=== PATIENT | male | born 1980 | race Caucasian/White ===

== ENCOUNTER 2016-05-30 13:54 | Emergency (ER) | payer OTHER | END 2016-05-30 16:30 | disposition home or self-care (01) | LOC: ER 13:54 | DX: J06.9 Acute upper respiratory infection, unspecified (principal); R52 Pain, unspecified; F17.210 Nicotine dependence, cigarettes, uncomplicated; Z88.0 Allergy status to penicillin | CPT/HCPCS: 87400; 94664; 99283 ==